=== PATIENT | female | born 1975 | race Caucasian/White ===

== ENCOUNTER 2020-04-24 11:42 | Emergency (ER) | payer BC, SELFPAY ==
[2020-04-24 11:43] VITALS: BP 145/104; PULSE 83; RESP 18; TEMP 35.4; O2SAT 99; BMI 34.2
--- NOTE | 2020-04-24 12:07 | ED.DCSUM_ITS ---
- ER Visit Summary Date of Service: 04/24/20 Chief Complaint: Abdominal pain History of Present Illness: The patient is a 44 F who presents with abdominal pain that has been getting worse over the past 2 days. Patient states it has just gradually gotten worse. Patient describes the pain is cramping. Patient states the pain is over the left lower quadrant area. Patient states nothing makes it better or worse. Patient denies any nausea or vomiting. Patient denies any diarrhea, melena, or hematochezia. Patient denies any dysuria or hematuria. Patient states her father has a history of kidney stones but she has never had any kidney stones. Physical Examination: Vital signs are stable. Patient is afebrile. Patient is in no acute distress. Oral mucosa is pink and moist. Neck is supple. Trachea is midline. There is no JVD. Heart was regular rate and rhythm. Lungs are clear and equal bilaterally. Abdomen is soft. Bowel sounds are normal. There is left lower quadrant tenderness. There is no rebound noted. There is voluntary guarding noted. Cranial nerves II through XII are intact. There are no focal motor or sensory deficits noted. Extremities are intact. There is no calf tenderness or edema. Test Results: CBC shows a mild leukocytosis of 14.7. Comprehensive metabolic profile was normal. Urinalysis was normal. CT scan of the abdomen and pelvis was obtained. There is acute uncomplicated diverticulitis noted. There is no other acute abnormality. This was interpreted by the radiologist and reviewed by myself. Emergency Department Course and Treatment: Patient was given IV fluids here. Patient was given Zofran, Toradol, and morphine initially. Patient was still having some nausea. Patient was given a repeat dose of Zofran. Patient was given a dose of Augmentin here. Patient was given a prescription for Augmentin. Patient was instructed to follow-up with her primary care physician in 5 to 7 days for further evaluation. Patient understood and was agreeable with the plan. All questions were answered. Disposition: Discharge home Impression: 1. Diverticulitis This note was generated with [email or web address] software. It may contain incorrect words, spelling, and punctuation that were not noted in review of the chart prior to signing ED Disposition - Plan for ED Patient: Disposition: Home or Assisted Living Diagnosis: Diverticulitis Instructions: ED Diverticulitis Prescriptions: Amox/Clavulanate Tablet [Augmentin Tablet] 875 mg PO Q12H #20 tablet Amox/Clavulanate Tablet [Augmentin Tablet] 875 mg PO Q12H #20 tab Prescription Printed Ondansetron [Zofran Odt] 4 mg PO Q8H PRN PRN #10 tab PRN Reason: Nausea Prescription Printed Referrals: Tyler Burk MD [Primary Care Provider] -
--- NOTE | 2020-04-24 12:07 | CT_ITS ---
STUDY: CT ABDOMEN AND PELVIS WITHOUT CONTRAST REASON FOR EXAM: Female, 44 years old. LLQ PAIN X 2 DAYS, HX-COLITIS RADIATION DOSAGE (If Supplied By Facility): CTDIvol = ( 16.43 ) mGy, DLP = ( 862.17 ) mGycm TECHNIQUE: Transaxial images were obtained from the dome of the diaphragm to the symphysis pubis without oral contrast, and without intravenous contrast. Sagittal and coronal images were reconstructed. Individualized dose optimization techniques were used for this CT. COMPARISON: None. FINDINGS: The visualized lung bases are unremarkable. The visualized portions of the heart are within normal limits. There is decreased attenuation of the liver consistent with steatosis. Normal gallbladder and extrahepatic biliary system. Normal spleen. Normal pancreas. Normal bilateral adrenal glands. Normal right kidney. Normal left kidney. Normal visualized stomach. Normal small intestine. Acute uncomplicated descending colonic diverticulitis. The appendix is visualized and appears normal. Normal abdominal aorta. Normal inferior vena cava. Normal retroperitoneum. Normal urinary bladder. Unremarkable uterus Normal abdominal wall. Normal osseous structures. CT/Abdomen/Pelvis without Cont IMPRESSION: Acute uncomplicated diverticulitis involving the descending colon. Less likely colitis. Electronically Signed: Sammy Monahan DO at 13:50 EST Tel , Service support ,
[2020-04-24 12:35] LABS: Absolute Lymphocyte Count 2.46 X10^3/uL (0.83-4.51); Absolute Neutrophil Count 11.2 X10^3/uL (2.0-7.7); Basophil# 0.04 X10^3/uL; Basophil% 0.3 % (0-1); Eosinophil# 0.09 X10^3/uL; Eosinophils% 0.6 % (0-5); Hematocrit 48.2 % (37-47); Hemoglobin 15.6 g/dL (12.0-15.0); Lymphocyte # 2.46 X10^3/ul (4.0); Lymphocyte % 16.7 % (19-41); Mean Corp Hgb Conc 32.4 g/dL (32-36); Mean Corpuscular Hgb 29.7 pg (27.0-32.0); Mean Corpuscular Volume 91.6 fL (81-99); Mean Platelet Vol. 10.7 fl (6.2-12.0); Monocyte# 0.91 X10^3/uL; Monocyte% 6.2 % (0-10); NRBC Flagged by Analyzer 0 % (0-5); Neutrophil # 11.15 X10^3/uL (2.7-7.7); Neutrophil % 75.9 % (47-70); Platelet Count 352 K/mm3 (150-450); RBC Distribution Width CV 12.7 % (11.6-14.6); RBC Distribution Width SD 42.5 fl (35.1-43.9); Red Blood Count 5.26 M/mm3 (4.2-5.4); White Blood Count 14.7 K/mm3 (4.4-11.0)
[2020-04-24 12:44] LABS: AST(SGOT) 15 U/L (15-37); Alanine Aminotransfer ALT/SGPT 37 U/L (13-56); Albumin, Serum 4.2 g/dL (3.2-5.0); Alkaline Phosphatase 76 U/L (45-117); Anion Gap 6 (5-15); BUN 10 mg/dL (7-18); BUN/Creat Ratio 10.8 RATIO (10-20); Chloride 105 mmol/L (98-107); Creatinine, Serum 0.92 mg/dL (0.55-1.02); EST Glomerular Filtration Rate 71 mL/min (>60); Est Glom Filt Rate - Afr Amer 85 mL/min (>60); Globulin 4.2 g/dL (2.2-4.2); Glucose 86 mg/dL (74-106); Lipase 79 U/L (73-393); Potassium 3.7 mmol/L (3.5-5.1); Protein, Total 8.4 g/dL (6.4-8.2); Sodium Level 140 mmol/L (136-145)
[2020-04-24] MEDS: 0.9% Normal Saline 1,000 ML 1000 ML IV (12:49)
[2020-04-24] MEDS: Ketorolac 30 MG/ML Syringe IV (12:49)
[2020-04-24] MEDS: Ondansetron 4 MG/2 ML Vial IV ×2 (12:49→15:35)
[2020-04-24] MEDS: Morphine 4 MG/ML Syringe IV (12:49)
[2020-04-24 13:13] LABS: Mucous, Urine 0 SEEN /hpf (<or=2+)
[2020-04-24 13:17] LABS: Color, Urine Yellow (Yellow); Glucose, Dipstick Normal (Normal); Ketone-Dipstick 5 mg/dl (Negative); Leukocyte Esterase-Dipstick Negative /ul (Negative); Nitrite-Dipstick Negative (Negative); Occult Blood-Urine 10 /ul (Negative); Protein-Dipstick 15 mg/dl (Negative); Urine Bilirubin Dipstick Negative (Negative); Urine Clarity Clear (Clear); Urine Urobilinogen Normal (Normal)
[2020-04-24 13:30] LABS: Bacteria 1+ /hpf (None Seen); Red Blood Cells-Urine 0-5 SEEN /hpf (0-5); Squamous Epithelial Cells - UA 0-5 SEEN /hpf (5-10); White Blood Cells 0-5 SEEN /hpf (0-5)
[2020-04-24] MEDS: Amox/Clavulanate 875 MG Tablet PO (15:35)
[2020-04-24 15:36] VITALS: BP 132/85; PULSE 79; RESP 14; O2SAT 92
== END 2020-04-24 16:27 | disposition home or self-care (01) ==
PROVIDERS: Emergency Provider Emergency Medicine; PCP Internal Medicine
DX: K57.92 Diverticulitis of intestine, part unspecified, without perforation or abscess without bleeding (principal); I10 Essential (primary) hypertension
CPT/HCPCS: 74176; 80053; 81001; 83690; 85025; 96361; 96374; 96375; 96376; 99283; J7030; J2405

== ENCOUNTER 2024-07-20 18:11 | Emergency (ER) | payer BC, SELFPAY ==
[2024-07-20] VITALS (8 sets, daily range): BP systolic 109–173; BP diastolic 72–119; PULSE 91–104; RESP 17–25; TEMP 36.6–37; O2SAT 95–97; BMI 37.5
--- NOTE | 2024-07-20 21:32 | EDS_ITS ---
HPI History of Present Illness Chief Complaint: Shortness of Breath Informant: patient Narrative Narrative: Patient is a 49-year-old female with history of hypertension presenting for worsening cough not improving. Patient states she was told to come in if she is not getting better. She states that she has been sick for 3 weeks. She has had outpatient evaluation, finished course of prednisone yesterday and had a CT of her chest to rule out which she thinks to be a blood clot last week. She also had an outpatient EKG. She was placed on amoxicillin 3 days ago. She feels that she is worsening. This morning she woke up she was of increased pain over the left side of her neck and now feels that she is hoarse. She denies any fevers throughout this. Denies any nausea vomiting change in her bowel movements. She notes that she has had hemoptysis but has been also having nosebleeds. She does feel short of breath and hoarse with talking. She has a foreign body sensation in her throat. She came in for further evaluation. Chart review on [facility] shows that patient a CTA of her chest on 07/14/2024 which did not show any PE although evaluation of the segmental and subsegmental branches limited due to respiratory motion. No lymphadenopathy was noted. [facility]20[facility]was advised to go to the ER for worsening symptoms. Placed on amoxicillin and Tessalon Perles for cough. Had EKG, CBC and CMP for tachycardia ordered. Was noted to have conjunctivitis of the right eye. Had a home test 2+ weeks ago positive for COVID but has had persistent symptoms. [facility] Medical History SOB (shortness of breath) Home Medications ?Medication ?Instructions ?Recorded ?Last Taken ?Type amoxicillin 875 mg-potassium 875 mg PO Q12H #20 tabs 1 06/24/19 Unknown Rx clavulanate 125 mg tablet benzonatate 100 mg capsule 100 mg PO TID PRN PRN cough 07/20/24 Unknown History hydrochlorothiazide 25 mg tablet 25 mg PO DAILY Unknown History lisinopril 40 mg tablet 40 mg PO DAILY 07/20/24 Unkn own History albuterol sulfate 90 mcg/actuation 1 - 2 puff inhalati on Q4H PRN PRN 07/21/24 Unknown Rx aerosol inhaler (Ventolin HFA) Wheezing #1 inh dexamethasone 6 mg tablet 6 mg PO DAILY #1 TAB 5 Unknown Rx guaifenesin 600 mg tablet, 1,200 mg (2 x 600 mg) PO Q1 2H PRN 07/21/24 Unknown Rx extended release 12 hr (Mucinex) congestion #20 tabs Allergy/AdvReac Type Severity Reaction Status Date / Time No Known Allergies Allergy Verified 07/20/24 18:11 Social History Smoking Status: Never smoker ROS ROS ED Constitutional Constitutional ED: Reports chills; Denies fever(s) Eyes Eyes: Reports other Details: Eye redness, denies drainage ; Denies change in vision ENT ENT ED: Reports ear pain left, rhinorrhea and sore throat Cardiovascular Cardiovascular: Reports chest pain and other Details: With coughing Respiratory/Chest Respiratory/Chest: Reports cough, dyspnea and sputum Gastrointestinal Gastrointestinal: Denies abdominal pain Musculoskeletal Musculoskeletal: Reports arthralgias and myalgias Integumentary Denies rash Neurologic Neurologic: Reports headache(s) and weakness Psychiatric Psychiatric: Reports anxiety Hematologic/Lymphatic Hematologic/Lymphatic: Denies easy bleeding or easy bruising EXAM Physical Exam Const Vital Signs: 07/20/24 18:11 07/20/24 18:36 07/20/24 18:39 Temperature 98.2 F Temperature Source Oral Pulse Rate 98 97 Respiratory Rate 25 H 20 H Respiratory Effort Short of Breath Respiratory Pattern Blood Pressure 112/100 H 137/92 H Blood Pressure Mean 104 107 Pulse Ox 97 96 Oxygen Delivery Method Room Air Room Air 07/20/24 18:54 07/20/24 20:16 07/20/24 21:00 Temperature 98.2 F 98.2 F 98.2 F Temperature Source Oral Oral Oral Pulse Rate 98 91 92 Respiratory Rate 18 21 H 19 H Respiratory Effort Respiratory Pattern Blood Pressure 173/119 H 140/72 H 109/72 Blood Pressure Mean 137 94 84 Pulse Ox 95 97 96 Oxygen Delivery Method Room Air Room Air Room Air 07/20/24 21:35 07/20/24 21:42 07/20/24 22:03 Temperature 98 F Temperature Source Temporal Pulse Rate 104 H 95 Respiratory Rate 22 H 18 Respiratory Effort Respiratory Pattern Tachypnea Blood Pressure 141/78 H Blood Pressure Mean 99 Pulse Ox 96 Oxygen Delivery Method Room Air Room Air 07/20/24 23:00 07/21/24 00:04 Temperature 98.6 F Temperature Source Oral Pulse Rate 95 88 Respiratory Rate 17 16 Respiratory Effort Respiratory Pattern Blood Pressure 125/74 H 121/81 H Blood Pressure Mean 91 94 Pulse Ox 97 95 Oxygen Delivery Method Room Air Room Air Positive well nourished and well developed Constitutional Narrative: Patient was nontoxic but does look like she does not feel well General Appearance ED: well developed and NAD HEENT Reports TM's clear and moist mucous membranes HEENT Narrative: Oropharynx mildly injected. Normal and midline uvula. Tympanic Membrane ED: Yes TM's clear Eyes PERRL Neck supple Neck Narrative: Tender lymphadenopathy on the left anterior cervical chain Resp Resp Narrative: Harsh bronchial cough present. Diminished breath sounds at the bases. Bronchial breath sounds Cardio regular rate, regular rhythm and no murmurs GI non-tender and non-distended Palpation: soft; Negative for guarding Extremity normal to inspection General Extremety ED: Yes edema General Extremity: edema Neuro oriented x3 Sensorium / Orientation: alert Psych Mood & Affect: anxious Skin no wounds Rashes: no rashes MDM MDM MDM Narrative Medical decision making narrative: Patient is a 49-year-old female who states that over the past few months she has had recurrent respiratory infections and illnesses. She was sick 3 weeks ago with what sounds like COVID she had a positive home test. She lacerations a small. She had just finished a course of prednisone last night and is having worsening symptoms again today. She saw her PCP and was put on amoxicillin on Saturday. She was told if she is not getting better she should go to the emergency room. She also had an outpatient CTA of her chest which did not show any PE or other acute process. Differential includes pneumonia, influenza, reactive airway, bronchospasm/bronchitis, dehydration and less likely ACS. Given she had a negative CTA of her chest last week with the same symptoms and is denying more infectious I do not think she requires reevaluation of this. Vital signs are normal in the emergency room except for mild tachypnea. She is afebrile. Patient is given DuoNeb treatment with improvement of her respiratory symptoms. She is also given a dose of Solu-Medrol. CBC shows a leukocytosis with white blood cell count of 16.2 but no left shift. I suspect this is more from her recent steroids. Hemoglobin mildly elevated at 15.1 however this appears near her baseline back in 2020. BMP shows a mild elevation of creatinine of 1.2 to. Most recent BMP was from 5 years ago which showed a creatinine of 0.92. Will give patient a liter of IV fluids. High sensitive troponin less than 3 and EKG does not show any acute ischemic changes. Do not suspect a cardiogenic cause of her symptoms. She does not clinically appear fluid overloaded. Chest x-ray does not show any acute infiltrate on review by myself as well as radiology. Patient does test positive for influenza A. Likely this is the cause of acute worsening of her symptoms. Patient does watch her [id number] grandchild. Discussed that she could be picking up a lot more germs respiratory illnesses from her grandchild and she normally has and this could be why she has had an uptick in her respiratory infections over the past few months. Will start the patient on inhaler and given additional dose of Decadron tomorrow. She has Tessalon Perles use at home. Is prescribed Mucinex. She will contact her PCP about potentially stopping her amoxicillin given that she has influenza A with no signs of pneumonia today. Lab Data Attestation: I reviewed the patient's lab results. Labs: Laboratory Results - last 24 hr 07/20/24 07/20/24 07/20/24 18:40 21:49 22:12 WBC 16.2 H RBC 5.23 Hgb 15.1 H Hct 45.6 MCV 87.2 MCH 28.9 MCHC 33.1 RDW Std Deviation 42.5 RDW Coeff of Mauricio 13.3 Plt Count 468 H MPV 11.0 Immature Gran % (Auto) 0.700 Neut % (Auto) 60.3 Lymph % (Auto) 31.0 [place] % (Auto) 7.5 Eos % (Auto) 0.1 Baso % (Auto) 0.4 Absolute Neuts (auto) 9.8 H Absolute Lymphs (auto) 5.01 H Nucleated RBC % 0 Platelet Estimate SLT INC Sodium 136 Potassium 3.7 Chloride 102 Carbon Dioxide 28.0 Anion Gap 5 BUN 25 H Creatinine 1.22 H Estim Creat Clear Calc 62.92 Est GFR (MDRD) Af Amer 61 Est GFR (MDRD) Non-Af 50 L BUN/Creatinine Ratio 20.5 H Glucose 96 Lactic Acid 0.9 Calcium 9.3 Troponin I High Sens < 3 L Radiography Chest X-Ray - ED: 2 View, Read by ED Physician, Read by Radiologist and No Acute Disease Diagnostic Testing: Clinical Impression(s) from Imaging Studies Chest X-Ray 07/20/24 22:00 IMPRESSION: No acute airspace abnormality. Reading Location: [facility] Rhythm Strip Rhythm Strip: Sinus Rhythm Rate: 98 Ectopy: None EKG Initial EKG: Attestation: I personally reviewed and interpreted this EKG as follows: Interpretation: Sinus Rhythm Comments: Normal sinus rhythm at a rate of 98 bpm Normal axis Normal intervals Normal ST segment Discharge Plan Triage Chief Complaint: Shortness of Breath ED Provider: Cristina Sherman Dx/Rx/DC Orders Clinical Impression: Influenza A Instructions: ED Bronchitis with Wheezing (Adult), ED Influenza (Adult) Prescriptions: New guaifenesin [Mucinex] 600 mg tablet extended release 12hr 1,200 mg PO Q12H PRN (Reason: congestion) Qty: 20 0RF dexamethasone 6 mg tablet 6 mg PO DAILY Qty: 1 0RF albuterol sulfate [Ventolin HFA] 90 mcg/actuation HFA aerosol inhaler 1 - 2 puff inhalation Q4H PRN PRN (Reason: Wheezing) Qty: 1 0RF No Action amoxicillin-pot clavulanate 875 MG tablet 875 mg PO Q12H Qty: 20 0RF benzonatate 100 mg capsule 100 mg PO TID PRN PRN (Reason: cough) hydrochlorothiazide 25 mg tablet 25 mg PO DAILY lisinopril 40 mg tablet 40 mg PO DAILY Primary Care Provider: Tyler Burk Referrals: Tyler Burk MD [Primary Care Provider] - Activity Restrictions/Additional Instructions: Continue to take cough medicine prescribed. You have influenza A. Suspect this is the cause of your respiratory symptoms today. I suspect influenza is causing bronchospasm/bronchitis. You have been given additional dose of steroids to take tomorrow or when you fill your prescription. Please use inhaler especially with the coughing fits. This should be prescribed Mucinex to hopefully thin up some secretions in your chest. Please contact your primary care doctor to see if he would like you to continue the antibiotics (amoxicillin) given that you have influenza. Print Language: Icelandic Disposition Disposition: Home, Self Care Discharge Date/Time: 07/21/24 00:54
[2024-07-20] MEDS: MethylPREDNISolone 125 MG/2 ML Vial IV (21:39)
[2024-07-20] MEDS: Ipratropium/Albuterol Sulfate 3 ML AMPUL.NEB INHALATION (21:42)
[2024-07-20 21:55] LABS: Absolute Lymphocyte Count 5.01 X10^3/uL (0.83-4.51); Absolute Neutrophil Count 9.8 X10^3/uL (2.0-7.7); Basophil# 0.07 X10^3/uL; Basophil% 0.4 % (0-1); Eosinophil# 0.01 X10^3/uL; Eosinophils% 0.1 % (0-5); Hematocrit 45.6 % (37-47); Hemoglobin 15.1 g/dL (12.0-15.0); Lymphocyte # 5.01 X10^3/ul (0.83-4.51); Mean Corp Hgb Conc 33.1 g/dL (32-36); Mean Corpuscular Hgb 28.9 pg (27.0-32.0); Mean Corpuscular Volume 87.2 fL (81-99); Monocyte# 1.21 X10^3/uL; Monocyte% 7.5 % (0-10); NRBC Flagged by Analyzer 0 % (0-5); Neutrophil # 9.76 X10^3/uL (2.7-7.7); Neutrophil % 60.3 % (47-70); POSITIVE DIFFERENTIAL YES; Platelet Count 468 K/mm3 (150-450); RBC Distribution Width CV 13.3 % (11.6-14.6); RBC Distribution Width SD 42.5 fl (35.1-43.9); Red Blood Count 5.23 M/mm3 (4.2-5.4); White Blood Count 16.2 K/mm3 (4.4-11.0)
[2024-07-20 21:57] LABS: Differential Indicated SCAN CRITERIA MET
--- NOTE | 2024-07-20 22:00 | RAD_ITS ---
PROCEDURE: Chest radiographs REASON FOR EXAM: Cough TECHNIQUE: Two views of the chest COMPARISON: None. FINDINGS: Cardiomediastinal silhouette is within normal limits. Lungs are clear. No sizable pneumothorax. RAD/Chest PA and Lateral IMPRESSION: No acute airspace abnormality. Reading Location: [facility]
[2024-07-20 22:20] LABS: Platelet Estimate SLT INC (ADEQ)
[2024-07-20 22:28] LABS: Lactic Acid 0.9 mmol/L (0.4-1.9)
[2024-07-20 22:36] LABS: Anion Gap 5 (5-15); BUN 25 mg/dL (7-18); BUN/Creat Ratio 20.5 RATIO (10-20); Calcium,Total 9.3 mg/dL (8.5-10.1); Chloride 102 mmol/L (98-107); Creatinine, Serum 1.22 mg/dL (0.55-1.02); EST Glomerular Filtration Rate 50 mL/min (>60); Est Glom Filt Rate - Afr Amer 61 mL/min (>60); Estimated Creatinine Clearance 62.92 ml/min; Glucose 96 mg/dL (74-106); Potassium 3.7 mmol/L (3.5-5.1); Sodium Level 136 mmol/L (136-145); Troponin-I HS < 3 pg/mL (3.0-54.0)
[2024-07-20] MEDS: 0.9% Normal Saline (1000mL) 1,000 ML 999 ML IV (23:06)
[2024-07-21 00:04] VITALS: BP 121/81; PULSE 88; RESP 16; O2SAT 91; O2SAT 95
[2024-07-21] MEDS: Albuterol Sulfate 8 gm Inhaler (60 puffs) 2 PUFF INHALATION (00:50)
[2024-07-21 00:53] VITALS: BP 125/89; PULSE 88; RESP 16; TEMP 37.2; O2SAT 95
== END 2024-07-21 00:54 | disposition home or self-care (01) ==
PROVIDERS: Emergency Provider Emergency Medicine; PCP Internal Medicine; Visit Provider Emergency Medicine
DX: J10.1 Influenza due to other identified influenza virus with other respiratory manifestations (principal); H10.9 Unspecified conjunctivitis; R09.A2 Foreign body sensation, throat; I10 Essential (primary) hypertension; F41.9 Anxiety disorder, unspecified
CPT/HCPCS: 71046; 80048; 83605; 84484; 85025; 87631; 93005; 94640; 99284; A4216